=== PATIENT | female | born 1975 | race Two or more races ===

== ENCOUNTER 2023-05-01 12:59 | Inpatient (IN) | payer OTHER ==
[~2023-05-01] VITALS: Ht 180.3 cm; Wt 113.4 kg
[2023-05-02] MEDS ORDERED: NORVASC5 MG PO (11:02)
[2023-05-02] MEDS ORDERED: COZAAR100 MG PO (11:02)
[2023-05-05] MEDS ORDERED: Tylenol #3 PO (09:06)
[2023-05-05] MEDS ORDERED: NAPR500T14 PO (09:06)
== END 2023-05-05 11:26 | disposition home or self-care (01) | DRG 743 ==
LOC: OB/GYN 05-04 07:00 → O/R 05-04 07:50 → OB/GYN 05-04 09:15
PROVIDERS: ADMIT Obstetrics & Gynecology; ATTEND Obstetrics & Gynecology
PROC: 0UT7FZZ Resection of Bilateral Fallopian Tubes, Via Natural or Artificial Opening With Percutaneous Endoscopic Assistance (ICD-10-PCS; 2023-05-04)
PROC: 0UT2FZZ Resection of Bilateral Ovaries, Via Natural or Artificial Opening With Percutaneous Endoscopic Assistance (ICD-10-PCS; 2023-05-04)
PROC: 0JQC0ZZ Repair Pelvic Region Subcutaneous Tissue and Fascia, Open Approach (ICD-10-PCS; 2023-05-04)
PROC: 0USG4ZZ Reposition Vagina, Percutaneous Endoscopic Approach (ICD-10-PCS; 2023-05-04)
PROC: 0TJB8ZZ Inspection of Bladder, Via Natural or Artificial Opening Endoscopic (ICD-10-PCS; 2023-05-04)
PROC: 0UT9FZZ Resection of Uterus, Via Natural or Artificial Opening With Percutaneous Endoscopic Assistance (ICD-10-PCS; principal; 2023-05-04 07:00)
DX: D25.2 Subserosal leiomyoma of uterus (principal); Z20.822 Contact with and (suspected) exposure to COVID-19; N81.11 Cystocele, midline; N81.5 Vaginal enterocele